=== PATIENT | female | born 1990 | race Caucasian/White ===

== ENCOUNTER 2017-02-07 20:10 | Emergency (ER) | payer OTHER ==
[~2017-02-07] VITALS: Ht 152.4 cm; Wt 84.8 kg
[2017-02-07] MEDS ORDERED: SYNTHROID100 MCG PO (21:38)
[2017-02-07] MEDS ORDERED: HYDROCODONE-AP1 EAC6 PO (21:47)
[2017-02-07 22:05] VITALS: BP 120/81
== END 2017-02-07 21:46 | disposition home or self-care (01) ==
LOC: ER 20:10
DX: S91.311A Laceration without foreign body, right foot, initial encounter (principal); W25.XXXA Contact with sharp glass, initial encounter; Y93.89 Activity, other specified; Y92.89 Other specified places as the place of occurrence of the external cause; Y99.8 Other external cause status

== ENCOUNTER 2017-05-20 18:46 | Emergency (ER) | payer OTHER ==
[~2017-05-20] VITALS: Ht 152.4 cm; Wt 83.0 kg
[~2017-05-20 18:46] MED LIST: HYDROCODONE-AP1 EAC6 PO; SYNTHROID100 MCG PO
[2017-05-20] MEDS ORDERED: SYNTHROID75 MCG PO ×2 (19:42→20:57)
== END 2017-05-20 21:15 | disposition home or self-care (01) ==
LOC: ER 18:46
DX: Z76.0 Encounter for issue of repeat prescription (principal); E03.9 Hypothyroidism, unspecified

== ENCOUNTER 2017-07-07 18:47 | Emergency (ER) | payer OTHER ==
[~2017-07-07] VITALS: Ht 152.4 cm; Wt 63.5 kg
[~2017-07-07 18:47] MED LIST changes: +SYNTHROID75 MCG PO
[2017-07-07] MEDS ORDERED: SYNTHROID75 MCG PO (21:21)
== END 2017-07-07 21:45 | disposition home or self-care (01) ==
LOC: ER 18:47
DX: E03.9 Hypothyroidism, unspecified (principal); R53.1 Weakness